=== PATIENT | male | born 1960 | race Caucasian/White ===

== ENCOUNTER 2021-04-24 00:19 | Observation (INO) ==
[2021-04-24] MEDS ORDERED: SODIUM CHLORIDE 0.9% 1,000 ML IV STA (00:56)
[2021-04-24 01:18] LABS: Basophils # 0.1 10*3/uL (0.0-0.2); Basophils % 0.7 % (0.0-0.8); Eosinophils # 0.1 10*3/uL (0.0-0.87); Eosinophils % 1.5 % (0.00-10.9); Hematocrit 46.3 VOL% (42.0-52.0); Hemoglobin 15.8 GM/DL (14.0-18.0); Immature Granulocytes % 0.1 %; Immature Granulocytes Absolute 0.01 #; Lymphocytes # 1.9 10*3/uL (1.4-4.0); Lymphocytes % 25.7 % (21.2-54.2); Mean Corpuscular HGB Conc 34.1 GM/DL (32-36); Mean Corpuscular Volume 94.5 FL (87-102); Monocytes % 9.8 % (1.7-12.7); Neutrophils % 62.2 % (38.7-73.9); Platelet Count 189 T/CUMM (130-400); Red Cell Distribution Width 13.3 % (9.3-17.3); White Blood Count 7.4 T/CUMM (4-12)
[2021-04-24 01:40] LABS: Albumin 4.3 G/DL (3.4-5.0); Osmolality,Calculated 278.4 MOS/KG (273-304); Potassium 3.5 MMOL/L (3.5-5.1); Total Protein 7.6 G/DL (6.4-8.2)
[2021-04-24 01:45] LABS: RBC,Urine 30621 /HPF (0-4)
[2021-04-24 01:54] LABS: Glucose,Urine (UA) Negative (Negative); Protein,Urine >=500 MG/DL; Urine Appearance Turbid (Clear); Urine Color Red (Yellow)
[2021-04-24 01:55] LABS: Bilirubin,Urine Negative (Negative); Blood, Urine 1+ mg/dL (Negative); Ketones,Urine Negative (Negative); Urine Urobilinogen < 2.0 EU/DL (0.2-1.0)
[2021-04-24] MEDS ORDERED: LEVOFLOXACIN INJ 500 MG/100 ML PREMIX IV ONE (02:10)
[2021-04-24] MEDS ORDERED: HYDROmorphone 2 MG/1 ML VIAL IV STA (02:43)
[2021-04-24] MEDS ORDERED: ONDANSETRON 4 MG/2 ML VIAL ONE (02:45)
[2021-04-24] MEDS ORDERED: ONDANSETRON 4 MG/2 ML VIAL IV ONE (02:45)
[2021-04-24] MEDS ORDERED: ONDANSETRON 4 MG/2 ML VIAL IV PRN (03:05)
[2021-04-24] MEDS ORDERED: hydrALAZINE 20 MG/1 ML VIAL IV STA (03:15)
[2021-04-24 04:55] LABS: Basophils % 0.5 % (0.0-0.8); Eosinophils # 0.1 10*3/uL (0.0-0.87); Eosinophils % 0.6 % (0.00-10.9); Hematocrit 42.5 VOL% (42.0-52.0); Hemoglobin 14.3 GM/DL (14.0-18.0); Immature Granulocytes % 0.2 %; Immature Granulocytes Absolute 0.02 #; Lymphocytes # 1.2 10*3/uL (1.4-4.0); Lymphocytes % 13.4 % (21.2-54.2); Mean Corpuscular HGB Conc 33.6 GM/DL (32-36); Mean Corpuscular Volume 95.5 FL (87-102); Mean Platelet Volume 10.5 FL (9.6-12.0); Monocytes % 7.7 % (1.7-12.7); Neutrophils % 77.6 % (38.7-73.9); Platelet Count 165 T/CUMM (130-400); Red Blood Count 4.45 MC/CUMM (3.8-5.5); Red Cell Distribution Width 13.2 % (9.3-17.3); White Blood Count 8.9 T/CUMM (4-12)
[2021-04-24] MEDS: SODIUM CHLORIDE 0.45% 1,000 ML IV SCH ×2 (05:01→13:34)
[2021-04-24 05:23] LABS: Calcium 8.4 MG/DL (8.5-10.1); Osmolality,Calculated 278.4 MOS/KG (273-304); Potassium 3.8 MMOL/L (3.5-5.1)
[2021-04-24] MEDS: HYDROmorphone 2 MG/1 ML VIAL IV PRN ×3 (07:45→21:10)
[2021-04-24 12:09] LABS: Basophils % 0.5 % (0.0-0.8); Eosinophils # 0.1 10*3/uL (0.0-0.87); Eosinophils % 0.9 % (0.00-10.9); Hematocrit 39.7 VOL% (42.0-52.0); Hemoglobin 13.3 GM/DL (14.0-18.0); Immature Granulocytes % 0.3 %; Immature Granulocytes Absolute 0.02 #; Lymphocytes # 1.6 10*3/uL (1.4-4.0); Lymphocytes % 20.7 % (21.2-54.2); Mean Corpuscular HGB Conc 33.5 GM/DL (32-36); Mean Corpuscular Volume 94.7 FL (87-102); Mean Platelet Volume 10.9 FL (9.6-12.0); Monocytes % 12.8 % (1.7-12.7); Neutrophils % 64.8 % (38.7-73.9); Platelet Count 158 T/CUMM (130-400); Red Blood Count 4.19 MC/CUMM (3.8-5.5); Red Cell Distribution Width 13.3 % (9.3-17.3); White Blood Count 7.5 T/CUMM (4-12)
[2021-04-24] MEDS ORDERED: LEVOFLOXACIN INJ 500 MG/100 ML PREMIX IV SCH (21:00)
[2021-04-25 06:11] LABS: Basophils # 0.1 10*3/uL (0.0-0.2); Basophils % 0.9 % (0.0-0.8); Eosinophils # 0.2 10*3/uL (0.0-0.87); Eosinophils % 2.3 % (0.00-10.9); Hemoglobin 13.1 GM/DL (14.0-18.0); Immature Granulocytes % 0.3 %; Immature Granulocytes Absolute 0.02 #; Lymphocytes # 1.9 10*3/uL (1.4-4.0); Lymphocytes % 28.7 % (21.2-54.2); Mean Corpuscular HGB Conc 32.8 GM/DL (32-36); Mean Corpuscular Volume 95.9 FL (87-102); Mean Platelet Volume 11.5 FL (9.6-12.0); Monocytes % 12.3 % (1.7-12.7); Neutrophils % 55.5 % (38.7-73.9); Platelet Count 152 T/CUMM (130-400); Red Blood Count 4.17 MC/CUMM (3.8-5.5); Red Cell Distribution Width 13.4 % (9.3-17.3); White Blood Count 6.7 T/CUMM (4-12)
[2021-04-25 06:31] LABS: Calcium 8.5 MG/DL (8.5-10.1); Osmolality,Calculated 278.4 MOS/KG (273-304); Potassium 4.3 MMOL/L (3.5-5.1)
[2021-04-25 07:54] VITALS: BP 139/78
== END 2021-04-25 11:07 | disposition home or self-care (01) ==
LOC: N.ED 00:19 → N.EDINP 00:19 → N.4E 04:16
PROVIDERS: ADMIT Surgery; ATTEND Surgery

== ENCOUNTER 2021-04-27 05:49 | Inpatient (IN) ==
[2021-04-21 16:35] LABS: Basophils # 0.1 10*3/uL (0.0-0.2); Eosinophils # 0.1 10*3/uL (0.0-0.87); Eosinophils % 1.4 % (0.00-10.9); Hematocrit 46.9 VOL% (42.0-52.0); Hemoglobin 15.7 GM/DL (14.0-18.0); Immature Granulocytes % 0.2 %; Immature Granulocytes Absolute 0.01 #; Lymphocytes # 1.7 10*3/uL (1.4-4.0); Lymphocytes % 30.4 % (21.2-54.2); Mean Corpuscular HGB Conc 33.5 GM/DL (32-36); Mean Corpuscular Volume 95.7 FL (87-102); Mean Platelet Volume 11.7 FL (9.6-12.0); Monocytes % 9.6 % (1.7-12.7); Neutrophils % 57.4 % (38.7-73.9); Platelet Count 203 T/CUMM (130-400); Red Cell Distribution Width 13.4 % (9.3-17.3); White Blood Count 5.7 T/CUMM (4-12)
[2021-04-21 16:45] LABS: PT Patient Result 10.9 SECS (10.5-12.0)
[2021-04-21 16:56] LABS: Albumin 4.2 G/DL (3.4-5.0); Bilirubin,Total 0.5 MG/DL (0.20-1.00); Calcium 9.2 MG/DL (8.5-10.1); Potassium 3.8 MMOL/L (3.5-5.1); Total Protein 7.1 G/DL (6.4-8.2)
[2021-04-27] MEDS ORDERED: GENTAMICIN INJ 80 MG/50 ML PREMIX IV ONE (06:00)
[2021-04-27] MEDS ORDERED: LEVOFLOXACIN 500 MG TABLET PO ONE (06:00)
[2021-04-27] MEDS ORDERED: FAMOTIDINE 20 MG TABLET PO ONE (06:45)
[2021-04-27] MEDS ORDERED: DIAZEPAM 5 MG TABLET PO ONE (06:45)
[2021-04-27] MEDS ORDERED: ACETAMINOPHEN 500 MG TABLET PO ONE (06:45)
[2021-04-27] MEDS ORDERED: LACTATED RINGERS 1,000 ML IV SCH (07:00)
[2021-04-27] MEDS ORDERED: cefTRIAXone 1,000 MG in SODIUM CHLORIDE 0.9% 100 ML IV ONE (07:00)
[2021-04-27] MEDS ORDERED: DEXAMETHASONE 4 MG/1 ML VIAL ONE ×2 (07:18→08:15)
[2021-04-27] MEDS ORDERED: ONDANSETRON 4 MG/2 ML VIAL ONE (07:18)
[2021-04-27] MEDS ORDERED: SEVOFLURANE 1 UNIT/15 MINUTE INH ONE ×4 (07:18→08:58)
[2021-04-27] MEDS ORDERED: propofoL 200 MG/20 ML VIAL IV ONE (07:18)
[2021-04-27] MEDS ORDERED: fentaNYL 100 MCG/2 ML VIAL ONE (07:18)
[2021-04-27] MEDS ORDERED: ROCURONIUM 50 MG/5 ML VIAL IV ONE (07:18)
[2021-04-27] MEDS ORDERED: LIDOCAINE 2% 5 ML VIAL ONE (07:18)
[2021-04-27 07:19] LABS: Basophils # 0.1 10*3/uL (0.0-0.2); Basophils % 0.8 % (0.0-0.8); Eosinophils # 0.2 10*3/uL (0.0-0.87); Eosinophils % 2.5 % (0.00-10.9); Hematocrit 39.8 VOL% (42.0-52.0); Hemoglobin 13.2 GM/DL (14.0-18.0); Immature Granulocytes % 0.3 %; Immature Granulocytes Absolute 0.02 #; Lymphocytes # 1.3 10*3/uL (1.4-4.0); Lymphocytes % 19.7 % (21.2-54.2); Mean Corpuscular HGB Conc 33.2 GM/DL (32-36); Mean Corpuscular Volume 94.5 FL (87-102); Mean Platelet Volume 10.6 FL (9.6-12.0); Monocytes % 13.1 % (1.7-12.7); Neutrophils % 63.6 % (38.7-73.9); Platelet Count 163 T/CUMM (130-400); Red Blood Count 4.21 MC/CUMM (3.8-5.5); Red Cell Distribution Width 13.2 % (9.3-17.3); White Blood Count 6.4 T/CUMM (4-12)
[2021-04-27 07:38] LABS: Calcium 8.6 MG/DL (8.5-10.1); Osmolality,Calculated 279.4 MOS/KG (273-304); Potassium 3.7 MMOL/L (3.5-5.1)
[2021-04-27] MEDS ORDERED: ePHEDrine 50 MG/ML VIAL ONE (08:01)
[2021-04-27] MEDS ORDERED: ACETAMINOPHEN 325 MG TABLET PO PRN (08:22)
[2021-04-27] MEDS ORDERED: ONDANSETRON 4 MG/2 ML VIAL IV PRN (08:22)
[2021-04-27] MEDS ORDERED: PROMETHAZINE 25 MG/1 ML VIAL IM PRN (08:22)
[2021-04-27] MEDS ORDERED: diphenhydrAMINE 50 MG/1 ML VIAL IV PRN (08:27)
[2021-04-27] MEDS ORDERED: LACTATED RINGERS 1,000 ML IV ONE (08:37)
[2021-04-27] MEDS ORDERED: GLYCOPYRROLATE 0.4 MG/2 ML VIAL ONE (08:37)
[2021-04-27] MEDS ORDERED: ROPIVACAINE 0.5% 30 ML VIAL ONE (08:38)
[2021-04-27] MEDS ORDERED: NEOSTIGMINE 10 MG/10 ML VIAL ONE (08:38)
[2021-04-27 09:26] LABS: Basophils # 0.1 10*3/uL (0.0-0.2); Eosinophils # 0.2 10*3/uL (0.0-0.87); Eosinophils % 2.7 % (0.00-10.9); Hematocrit 37.3 VOL% (42.0-52.0); Hemoglobin 12.6 GM/DL (14.0-18.0); Immature Granulocytes % 0.3 %; Immature Granulocytes Absolute 0.02 #; Lymphocytes # 1.3 10*3/uL (1.4-4.0); Mean Corpuscular HGB Conc 33.8 GM/DL (32-36); Mean Corpuscular Volume 94.7 FL (87-102); Monocytes % 8.7 % (1.7-12.7); Neutrophils % 66.3 % (38.7-73.9); Platelet Count 146 T/CUMM (130-400); Red Blood Count 3.94 MC/CUMM (3.8-5.5); Red Cell Distribution Width 13.2 % (9.3-17.3); White Blood Count 6.2 T/CUMM (4-12)
[2021-04-27 09:28] LABS: Bilirubin,Urine Negative (Negative); Blood, Urine Moderate mg/dL (Negative); Glucose,Urine (UA) Negative (Negative); Ketones,Urine Negative (Negative); Mucus,Urine Occasional /LPF (Occasional); Nitrite,Urine Negative (Negative); Protein,Urine 100 MG/DL; RBC,Urine 68 /HPF (0-4); Squamous Epithelial Cell,Urine Occasional /HPF (0-10); Urine Appearance CLEAR (Clear); Urine Color Yellow (Yellow); Urine Specific Gravity 1.017 (1.001-1.035); Urine Urobilinogen < 2.0 EU/DL (0.2-1.0)
[2021-04-27 09:58] LABS: Calcium 8.2 MG/DL (8.5-10.1); Osmolality,Calculated 279.4 MOS/KG (273-304); Potassium 3.6 MMOL/L (3.5-5.1)
[2021-04-27] MEDS: ACETAMINOPHEN 325 MG TABLET PO SCH ×3 (12:50→23:58)
[2021-04-27] MEDS: oxyCODONE/ACETAMINOPHEN 5-325 MG TABLET PO PRN (17:08)
[2021-04-27] MEDS: SODIUM CHLORIDE 0.9% 1,000 ML IV SCH (17:39)
[2021-04-27] MEDS: HYDROmorphone 2 MG/1 ML VIAL IV PRN ×2 (19:32→23:59)
[2021-04-28] MEDS: ACETAMINOPHEN 325 MG TABLET PO SCH ×2 (00:10→09:21)
[2021-04-28] MEDS: SODIUM CHLORIDE 0.9% 1,000 ML IV SCH (05:27)
[2021-04-28 06:02] LABS: Basophils % 0.2 % (0.0-0.8); Eosinophils % 0.2 % (0.00-10.9); Hematocrit 37.7 VOL% (42.0-52.0); Hemoglobin 12.6 GM/DL (14.0-18.0); Immature Granulocytes % 0.3 %; Immature Granulocytes Absolute 0.03 #; Lymphocytes # 1.1 10*3/uL (1.4-4.0); Lymphocytes % 11.9 % (21.2-54.2); Mean Corpuscular HGB Conc 33.4 GM/DL (32-36); Mean Corpuscular Volume 95.4 FL (87-102); Monocytes % 11.1 % (1.7-12.7); Neutrophils % 76.3 % (38.7-73.9); Platelet Count 173 T/CUMM (130-400); Red Blood Count 3.95 MC/CUMM (3.8-5.5); Red Cell Distribution Width 13.2 % (9.3-17.3); White Blood Count 9.3 T/CUMM (4-12)
[2021-04-28 06:22] LABS: Calcium 8.5 MG/DL (8.5-10.1); Potassium 3.8 MMOL/L (3.5-5.1)
[2021-04-28] MEDS ORDERED: cefTRIAXone 1,000 MG in SODIUM CHLORIDE 0.9% 100 ML IV SCH (08:30)
[2021-04-28] MEDS: oxyCODONE/ACETAMINOPHEN 5-325 MG TABLET PO PRN (08:46)
[2021-04-28] MEDS ORDERED: allopurinoL 300 MG TABLET PO SCH (09:00)
[2021-04-28 10:24] VITALS: BP 163/98
[2021-05-01 16:11] LABS: Stone Analysis Interpretation SEE COMMENTS; Stone Source Kidney
== END 2021-04-28 10:47 | disposition home or self-care (01) | DRG 661 ==
LOC: N.OR 05:49 → N.SDSINP 06:14 → N.4E 10:17
PROVIDERS: ADMIT Surgery; ATTEND Surgery